=== PATIENT | female | born 1960 | race Caucasian/White ===

== ENCOUNTER 2019-04-25 20:55 | Inpatient (IN) | payer OTHER ==
[~2019-04-25] VITALS: Ht 160 cm; Wt 52.3 kg
[2019-04-25] MEDS ORDERED: ondansetron 4mg rapidly disintigrating tab PO ONE (21:20)
[2019-04-25] MEDS ORDERED: ketorolac tromethamine 15mg/ml inj. IV ONE (21:20)
[2019-04-25] MEDS ORDERED: normal saline 1000ML IV soln IVB ONE ×2 (21:20→22:50)
[2019-04-25 21:48] LABS: BASOPHILS # (AUTO) 0.1 X10'3 (0-0.2); BASOPHILS % (AUTO) 0.3 % (0-1); EOSINOPHILS % (AUTO) 0.1 % (0-6); HEMATOCRIT 33.3 % (35.0-45.0); HEMOGLOBIN 11.2 g/dl (12.0-16.0); LYMPHOCYTES % (AUTO) 4.6 % (21-51); MEAN CORPUSCULAR HEMOGLOBIN 30.8 PG (27.0-31.0); MEAN CORPUSCULAR HGB CONC 33.7 g/dL (33.0-36.5); MEAN CORPUSCULAR VOLUME 91.4 FL (78-98); MONOCYTES # (AUTO) 0.9 X10'3 (0-0.9); MONOCYTES % (AUTO) 4.2 % (2-12); NEUTROPHILS # (AUTO) 18.9 X10'3 (1.8-7.7); NEUTROPHILS % (AUTO) 90.8 % (42-75); PLATELET COUNT 306 X10'3 (140-440); RED BLOOD COUNT 3.65 X10'6 (4.20-5.60); RED CELL DISTRIBUTION WIDTH 12.5 % (11.5-14.5); WHITE BLOOD COUNT 20.8 X10'3 (4.5-11.0)
[2019-04-25 22:03] LABS: ALANINE AMINOTRANSFERASE 13 U/L (12-78); ALBUMIN 3.1 G/DL (3.4-5.0); ALBUMIN/GLOBULIN RATIO 0.8 (1.1-1.5); ALKALINE PHOSPHATASE 113 IU/L (46-116); ANION GAP 9 (8-16); ASPARTATE AMINO TRANSFERASE 11 U/L (10-37); BILIRUBIN,TOTAL 0.7 MG/DL (0.1-1.0); BLOOD UREA NITROGEN 13 MG/DL (7-18); BUN/CREATININE RATIO 11.1 (6.6-38.0); CALCIUM 8.4 MG/DL (8.5-10.1); CHLORIDE 97 MMOL/L (99-107); CREATININE 1.17 MG/DL (0.40-0.90); GLUCOSE 139 MG/DL (70-104); POTASSIUM 3.1 MMOL/L (3.5-5.1); SODIUM 135 MMOL/L (135-145); TOTAL CARBON DIOXIDE 28.7 MMOL/L (24-32); TOTAL PROTEIN 6.9 G/DL (6.4-8.2); eGFR 48 ML/MIN
[2019-04-25] MEDS ORDERED: VENL150C2 PO (22:19)
[2019-04-25] MEDS ORDERED: PANT20TA3 PO (22:19)
[2019-04-25] MEDS ORDERED: DICY10CA88 PO (22:19)
[2019-04-25 22:24] LABS: TOTAL CELLS COUNTED 100
[2019-04-25 22:25] LABS: PLATELET ESTIMATE NORMAL
--- NOTE | 2019-04-25 22:36 | NUR ---
discussed pt's pain with edmd Brennon, new orders for fentanyl received.
[2019-04-25] MEDS ORDERED: fentaNYL/PF 50MCG/1 ML 2ML syringe IV ONE (22:40)
[2019-04-25 23:13] LABS: CLARITY,URINE CLEAR (Clear); COLOR,URINE YELLOW (Yellow); GLUCOSE, URINE NEGATIVE (Neg); KETONES,URINE NEGATIVE (Neg); LEUKOCYTE ESTERASE ,URINE NEGATIVE (Neg); NITRITES, URINE NEGATIVE (Neg); OCCULT BLOOD,URINE NEGATIVE (Neg); PROTEIN,URINE NEGATIVE (Neg); UROBILINOGEN,URINE 0.2 E.U/dL (0.2-1.0)
[2019-04-25 23:15] LABS: UA COLLECTION TYPE CLN CATCH MIDSTREAM
[2019-04-25] MEDS ORDERED: azithromycin/NS 500mg/250ml 250 ML IV ONE (23:15)
[2019-04-25] MEDS ORDERED: cefepime 1GM/NS ADD-VANTAGE 100 ML IV ONE (23:15)
[2019-04-25] MEDS ORDERED: acetaminophen 325mg tablet PO PRN (23:55)
[2019-04-25] MEDS ORDERED: mag hydrox/Alum hydrox/simeth 30ml oral suspension PO PRN (23:55)
[2019-04-25] MEDS ORDERED: magnesium hydroxide 30ml (MOM) UD suspension PO PRN (23:55)
[2019-04-26] MEDS ORDERED: potassium Cl 20 mEq SR tablet PO STA (00:21)
[2019-04-26 01:07] VITALS: BP 81/50
[2019-04-26] MEDS: normal saline 1000ml 1,000 ML IV SCH ×3 (01:13→20:54)
--- NOTE | 2019-04-26 01:38 | NUR ---
Admit to 4023B at 0050 via gurney from ED. Assumed care with verbal report from Byron ED RN. Patient ambulated from the gurney to bed and positioned for comfort with HOB up. Vital signs wnl's but b/p lower than patient's norm. Given call light and instructed to call for help getting to the bathroom the first time so we can evaluate whether she is symptomatic with her b/p or not. Patient stated understanding. Applesauce given as patient stated hasn't had very much to eat the past couple of days. Denies nausea, but headache remains about 8/10. Rc'd orders from Dr. Hylton to resume patient's home meds that were not on her med rec and for robitussin with codeine for cough. Assmt completed and documented.
[2019-04-26] MEDS: guaiFENesin/codeine phos 10ml UD oral syrup PO PRN ×6 (02:26→20:42)
[2019-04-26] MEDS: HYDROcodone/acetaminophen 5mg/325mg tablet PO PRN ×3 (02:26→17:37)
[2019-04-26 05:49] LABS: BASOPHILS # (AUTO) 0.1 X10'3 (0-0.2); BASOPHILS % (AUTO) 0.5 % (0-1); EOSINOPHILS % (AUTO) 0.1 % (0-6); HEMATOCRIT 29.2 % (35.0-45.0); HEMOGLOBIN 9.8 g/dl (12.0-16.0); LYMPHOCYTES # (AUTO) 1.9 X10'3 (1.1-4.8); LYMPHOCYTES % (AUTO) 9.4 % (21-51); MEAN CORPUSCULAR HGB CONC 33.6 g/dL (33.0-36.5); MEAN CORPUSCULAR VOLUME 92.4 FL (78-98); MEAN PLATELET VOLUME 7.3 FL (7.4-10.4); MONOCYTES # (AUTO) 0.8 X10'3 (0-0.9); NEUTROPHILS # (AUTO) 17.5 X10'3 (1.8-7.7); PLATELET COUNT 270 X10'3 (140-440); RED BLOOD COUNT 3.16 X10'6 (4.20-5.60); RED CELL DISTRIBUTION WIDTH 12.6 % (11.5-14.5); WHITE BLOOD COUNT 20.3 X10'3 (4.5-11.0)
[2019-04-26 06:00] VITALS: BP 89/47
[2019-04-26 06:08] LABS: ALANINE AMINOTRANSFERASE 14 U/L (12-78); ALBUMIN 2.5 G/DL (3.4-5.0); ALBUMIN/GLOBULIN RATIO 0.7 (1.1-1.5); ALKALINE PHOSPHATASE 100 IU/L (46-116); ANION GAP 7 (8-16); ASPARTATE AMINO TRANSFERASE 15 U/L (10-37); BILIRUBIN,TOTAL 0.5 MG/DL (0.1-1.0); BLOOD UREA NITROGEN 10 MG/DL (7-18); CALCIUM 7.6 MG/DL (8.5-10.1); CHLORIDE 105 MMOL/L (99-107); CREATININE 0.77 MG/DL (0.40-0.90); GLUCOSE 114 MG/DL (70-104); POTASSIUM 3.7 MMOL/L (3.5-5.1); SODIUM 137 MMOL/L (135-145); TOTAL CARBON DIOXIDE 24.7 MMOL/L (24-32); TOTAL PROTEIN 5.9 G/DL (6.4-8.2); eGFR 77 ML/MIN
--- NOTE | 2019-04-26 06:34 | NUR ---
Problems reprioritized. Patient report given, questions answered & plan of care reviewed with Paige FRANK.
[2019-04-26] MEDS ORDERED: cefepime 2gm inj IV SCH (08:00)
[2019-04-26] MEDS: gabapentin 300mg capsule PO SCH ×3 (08:49→20:43)
[2019-04-26] MEDS: pantoprazole 40mg Tablet.DR PO SCH (08:49)
[2019-04-26] MEDS: baclofen 10mg tablet PO SCH ×3 (08:50→20:43)
[2019-04-26] MEDS: dicyclomine 10 MG capsule PO SCH ×3 (08:50→20:43)
[2019-04-26] MEDS: heparin, porcine 5000 units/ml vial SQ SCH ×2 (08:51→20:44)
[2019-04-26] MEDS: venlafaxine XR 75mg capsule (Q24H) PO SCH (09:01)
[2019-04-26] MEDS: CEFEPIME 2 GM in NS 100ml IV.SOLN 100 ML IV SCH ×2 (09:02→20:42)
[2019-04-26] MEDS: azithromycin 250mg tablet PO SCH (09:02)
[2019-04-26 10:00] VITALS: BP 93/55
[2019-04-26] MEDS: guaiFENesin ER 600mg tablet PO SCH ×2 (12:10→20:43)
[2019-04-26 18:00] VITALS: BP 103/50
--- NOTE | 2019-04-26 19:35 | NUR ---
REPORT REC'D FROM ZAC HERNANDEZ.
[2019-04-26] MEDS: lactobacillus rhamnosus 10,000 MMU CELLS/CAPSULE PO SCH (20:43)
[2019-04-26 22:00] VITALS: BP 110/59
[2019-04-27] MEDS: HYDROcodone/acetaminophen 5mg/325mg tablet PO PRN ×2 (01:57→18:22)
[2019-04-27] MEDS: guaiFENesin/codeine phos 10ml UD oral syrup PO PRN ×5 (01:57→22:50)
[2019-04-27 05:34] VITALS: BP 107/55
--- NOTE | 2019-04-27 06:10 | NUR ---
REPORT GIVEN TO ZAC HERNANDEZ.
[2019-04-27 06:17] LABS: BASOPHILS # (AUTO) 0.1 X10'3 (0-0.2); BASOPHILS % (AUTO) 0.4 % (0-1); EOSINOPHILS # (AUTO) 0.1 X10'3 (0-0.9); EOSINOPHILS % (AUTO) 0.7 % (0-6); HEMOGLOBIN 9.9 g/dl (12.0-16.0); LYMPHOCYTES # (AUTO) 1.7 X10'3 (1.1-4.8); LYMPHOCYTES % (AUTO) 9.7 % (21-51); MEAN CORPUSCULAR HEMOGLOBIN 30.8 PG (27.0-31.0); MEAN CORPUSCULAR VOLUME 93.1 FL (78-98); MEAN PLATELET VOLUME 7.1 FL (7.4-10.4); MONOCYTES # (AUTO) 0.8 X10'3 (0-0.9); MONOCYTES % (AUTO) 4.3 % (2-12); NEUTROPHILS # (AUTO) 15.2 X10'3 (1.8-7.7); NEUTROPHILS % (AUTO) 84.9 % (42-75); PLATELET COUNT 271 X10'3 (140-440); RED BLOOD COUNT 3.22 X10'6 (4.20-5.60); RED CELL DISTRIBUTION WIDTH 12.8 % (11.5-14.5); WHITE BLOOD COUNT 17.9 X10'3 (4.5-11.0)
[2019-04-27 07:05] LABS: ALANINE AMINOTRANSFERASE 16 U/L (12-78); ALBUMIN 2.5 G/DL (3.4-5.0); ALBUMIN/GLOBULIN RATIO 0.6 (1.1-1.5); ALKALINE PHOSPHATASE 111 IU/L (46-116); ANION GAP 8 (8-16); ASPARTATE AMINO TRANSFERASE 19 U/L (10-37); BILIRUBIN,TOTAL 0.3 MG/DL (0.1-1.0); BLOOD UREA NITROGEN 6 MG/DL (7-18); BUN/CREATININE RATIO 8.8 (6.6-38.0); CHLORIDE 107 MMOL/L (99-107); CREATININE 0.68 MG/DL (0.40-0.90); GLUCOSE 105 MG/DL (70-104); POTASSIUM 3.4 MMOL/L (3.5-5.1); SODIUM 138 MMOL/L (135-145); TOTAL CARBON DIOXIDE 23.2 MMOL/L (24-32); TOTAL PROTEIN 6.4 G/DL (6.4-8.2); eGFR 89 ML/MIN
[2019-04-27 07:26] LABS: PLATELET ESTIMATE NORMAL; TOTAL CELLS COUNTED 100
[2019-04-27] MEDS: pantoprazole 40mg Tablet.DR PO SCH (08:14)
[2019-04-27] MEDS: azithromycin 250mg tablet PO SCH (08:15)
[2019-04-27] MEDS: guaiFENesin ER 600mg tablet PO SCH ×2 (08:15→20:25)
[2019-04-27] MEDS: venlafaxine XR 75mg capsule (Q24H) PO SCH (08:16)
[2019-04-27] MEDS ORDERED: traMADol 50MG tablet PO PRN (08:25)
[2019-04-27] MEDS: lactobacillus rhamnosus 10,000 MMU CELLS/CAPSULE PO SCH ×2 (08:30→20:25)
[2019-04-27] MEDS: gabapentin 300mg capsule PO SCH ×3 (08:30→20:25)
[2019-04-27] MEDS: baclofen 10mg tablet PO SCH ×3 (08:30→20:26)
[2019-04-27] MEDS: dicyclomine 10 MG capsule PO SCH ×3 (08:30→20:25)
[2019-04-27] MEDS: heparin, porcine 5000 units/ml vial SQ SCH ×2 (08:30→20:26)
[2019-04-27] MEDS: normal saline 1000ml 1,000 ML IV SCH ×2 (08:32→19:41)
[2019-04-27] MEDS: CEFEPIME 2 GM in NS 100ml IV.SOLN 100 ML IV SCH ×2 (08:32→20:27)
[2019-04-27] MEDS ORDERED: HYDR2TAB28 PO (08:57)
[2019-04-27 10:50] VITALS: BP 141/70
--- NOTE | 2019-04-27 14:43 | NUR ---
Initial: Pt admit w/ sepsis, PNA, and KATHY secondary to sepsis per MD note. PO 50-75% avg regular diet meeting needs given current wt; also still significant coughing per note. LBM 04/26. Will continue to monitor. Rec: 1. continue regular diet 2. monitor for ONS needs 3. wt per rx Addendum: 04/27/19 at [address] Amended: Links added.
[2019-04-27 18:00] VITALS: BP 113/65
[2019-04-27 22:00] VITALS: BP 136/75
[2019-04-28] MEDS: guaiFENesin/codeine phos 10ml UD oral syrup PO PRN ×3 (01:30→20:19)
[2019-04-28] MEDS: normal saline 1000ml 1,000 ML IV SCH ×3 (01:54→20:06)
[2019-04-28] MEDS: ondansetron/PF 4mg/2ml inj IV PRN ×3 (04:55→23:34)
[2019-04-28] MEDS: HYDROcodone/acetaminophen 5mg/325mg tablet PO PRN ×3 (04:56→22:49)
[2019-04-28 06:00] VITALS: BP 139/75
[2019-04-28 06:18] LABS: BASOPHILS # (AUTO) 0.1 X10'3 (0-0.2); BASOPHILS % (AUTO) 0.5 % (0-1); EOSINOPHILS # (AUTO) 0.3 X10'3 (0-0.9); EOSINOPHILS % (AUTO) 2.3 % (0-6); HEMATOCRIT 27.1 % (35.0-45.0); HEMOGLOBIN 9.2 g/dl (12.0-16.0); LYMPHOCYTES # (AUTO) 1.1 X10'3 (1.1-4.8); LYMPHOCYTES % (AUTO) 10.1 % (21-51); MEAN CORPUSCULAR HEMOGLOBIN 31.4 PG (27.0-31.0); MEAN CORPUSCULAR HGB CONC 33.8 g/dL (33.0-36.5); MEAN CORPUSCULAR VOLUME 92.8 FL (78-98); MEAN PLATELET VOLUME 7.2 FL (7.4-10.4); MONOCYTES # (AUTO) 0.6 X10'3 (0-0.9); MONOCYTES % (AUTO) 5.1 % (2-12); NEUTROPHILS # (AUTO) 9.2 X10'3 (1.8-7.7); PLATELET COUNT 270 X10'3 (140-440); RED BLOOD COUNT 2.92 X10'6 (4.20-5.60); RED CELL DISTRIBUTION WIDTH 12.3 % (11.5-14.5); WHITE BLOOD COUNT 11.3 X10'3 (4.5-11.0)
--- NOTE | 2019-04-28 06:31 | NUR ---
REPORT GIVEN TO ZAC MARROQUIN.
[2019-04-28 06:43] LABS: ALANINE AMINOTRANSFERASE 11 U/L (12-78); ALBUMIN 2.2 G/DL (3.4-5.0); ALBUMIN/GLOBULIN RATIO 0.6 (1.1-1.5); ALKALINE PHOSPHATASE 106 IU/L (46-116); ANION GAP 9 (8-16); ASPARTATE AMINO TRANSFERASE 16 U/L (10-37); BILIRUBIN,TOTAL 0.2 MG/DL (0.1-1.0); BLOOD UREA NITROGEN 3 MG/DL (7-18); BUN/CREATININE RATIO 6.3 (6.6-38.0); CHLORIDE 105 MMOL/L (99-107); CREATININE 0.48 MG/DL (0.40-0.90); GLUCOSE 99 MG/DL (70-104); SODIUM 140 MMOL/L (135-145); TOTAL CARBON DIOXIDE 26.2 MMOL/L (24-32); TOTAL PROTEIN 6.1 G/DL (6.4-8.2); eGFR > 90 ML/MIN
[2019-04-28 06:45] LABS: POTASSIUM 3.4 MMOL/L (3.5-5.1)
[2019-04-28] MEDS: dicyclomine 10 MG capsule PO SCH ×3 (08:09→20:20)
[2019-04-28] MEDS: lactobacillus rhamnosus 10,000 MMU CELLS/CAPSULE PO SCH ×2 (08:09→20:08)
[2019-04-28] MEDS: venlafaxine XR 75mg capsule (Q24H) PO SCH (08:10)
[2019-04-28] MEDS: baclofen 10mg tablet PO SCH ×3 (08:11→20:20)
[2019-04-28] MEDS: guaiFENesin ER 600mg tablet PO SCH ×2 (08:12→20:08)
[2019-04-28] MEDS: gabapentin 300mg capsule PO SCH ×3 (08:13→20:20)
[2019-04-28] MEDS: azithromycin 250mg tablet PO SCH (08:13)
[2019-04-28] MEDS: pantoprazole 40mg Tablet.DR PO SCH (08:13)
[2019-04-28] MEDS: heparin, porcine 5000 units/ml vial SQ SCH ×2 (08:15→20:09)
[2019-04-28] MEDS: CEFEPIME 2 GM in NS 100ml IV.SOLN 100 ML IV SCH ×2 (08:18→20:10)
[2019-04-28 10:00] VITALS: BP 95/58
--- NOTE | 2019-04-28 11:38 | NUR ---
Student documentation: I have reviewed all interventions, assessments performed and documented by Isac KIRBY [facility]. Student Medication Administration: For this medication-pass time frame, all medication were reviewed, dispensed, administered and documented per hospital policy by Isac Deng [facility].
[2019-04-28 18:00] VITALS: BP 129/72
--- NOTE | 2019-04-28 18:40 | NUR ---
Problems reprioritized. Patient report given, questions answered & plan of care reviewed with marianela RN.
[2019-04-28 22:00] VITALS: BP 126/73
[2019-04-29] MEDS: guaiFENesin/codeine phos 10ml UD oral syrup PO PRN ×4 (05:01→22:52)
[2019-04-29] MEDS: normal saline 1000ml 1,000 ML IV SCH (05:52)
[2019-04-29 06:10] VITALS: BP 130/70
[2019-04-29 06:52] LABS: BASOPHILS % (AUTO) 0.5 % (0-1); EOSINOPHILS # (AUTO) 0.2 X10'3 (0-0.9); EOSINOPHILS % (AUTO) 2.6 % (0-6); HEMATOCRIT 28.9 % (35.0-45.0); HEMOGLOBIN 9.7 g/dl (12.0-16.0); LYMPHOCYTES # (AUTO) 1.1 X10'3 (1.1-4.8); LYMPHOCYTES % (AUTO) 14.1 % (21-51); MEAN CORPUSCULAR HGB CONC 33.6 g/dL (33.0-36.5); MEAN CORPUSCULAR VOLUME 92.3 FL (78-98); MEAN PLATELET VOLUME 7.5 FL (7.4-10.4); MONOCYTES # (AUTO) 0.5 X10'3 (0-0.9); MONOCYTES % (AUTO) 6.8 % (2-12); NEUTROPHILS # (AUTO) 5.8 X10'3 (1.8-7.7); PLATELET COUNT 348 X10'3 (140-440); RED BLOOD COUNT 3.13 X10'6 (4.20-5.60); RED CELL DISTRIBUTION WIDTH 12.3 % (11.5-14.5); WHITE BLOOD COUNT 7.6 X10'3 (4.5-11.0)
--- NOTE | 2019-04-29 06:58 | NUR ---
Patient in room ORTHO 4023. I have received report from Wendy RN and had the opportunity to ask questions and assume patient care.
[2019-04-29 07:05] LABS: ALANINE AMINOTRANSFERASE 8 U/L (12-78); ALBUMIN 2.2 G/DL (3.4-5.0); ALBUMIN/GLOBULIN RATIO 0.6 (1.1-1.5); ALKALINE PHOSPHATASE 104 IU/L (46-116); ANION GAP 8 (8-16); ASPARTATE AMINO TRANSFERASE 13 U/L (10-37); BILIRUBIN,TOTAL 0.2 MG/DL (0.1-1.0); BLOOD UREA NITROGEN 2 MG/DL (7-18); BUN/CREATININE RATIO 3.8 (6.6-38.0); CHLORIDE 107 MMOL/L (99-107); CREATININE 0.52 MG/DL (0.40-0.90); GLUCOSE 100 MG/DL (70-104); POTASSIUM 3.1 MMOL/L (3.5-5.1); SODIUM 142 MMOL/L (135-145); TOTAL CARBON DIOXIDE 27.4 MMOL/L (24-32); eGFR > 90 ML/MIN
[2019-04-29] MEDS: HYDROcodone/acetaminophen 5mg/325mg tablet PO PRN (07:35)
[2019-04-29] MEDS: CEFEPIME 2 GM in NS 100ml IV.SOLN 100 ML IV SCH ×2 (08:03→20:25)
[2019-04-29] MEDS: gabapentin 300mg capsule PO SCH ×3 (08:03→20:31)
[2019-04-29] MEDS: pantoprazole 40mg Tablet.DR PO SCH (08:03)
[2019-04-29] MEDS: dicyclomine 10 MG capsule PO SCH ×3 (08:03→20:30)
[2019-04-29] MEDS: guaiFENesin ER 600mg tablet PO SCH ×2 (08:04→20:30)
[2019-04-29] MEDS: azithromycin 250mg tablet PO SCH (08:04)
[2019-04-29] MEDS: lactobacillus rhamnosus 10,000 MMU CELLS/CAPSULE PO SCH ×2 (08:04→20:30)
[2019-04-29] MEDS: baclofen 10mg tablet PO SCH ×3 (08:04→20:31)
[2019-04-29] MEDS: venlafaxine XR 75mg capsule (Q24H) PO SCH (08:05)
[2019-04-29] MEDS: heparin, porcine 5000 units/ml vial SQ SCH ×2 (08:06→20:26)
[2019-04-29] MEDS ORDERED: potassium Cl 20 mEq SR tablet PO PRN (08:55)
[2019-04-29] MEDS ORDERED: potassium CL 10mEq/100ml bag 100 ML IV PRN (08:55)
[2019-04-29] MEDS: potassium Cl 20 mEq SR tablet PO PRN ×3 (09:18→22:52)
[2019-04-29 10:00] VITALS: BP 132/77
[2019-04-29] MEDS ORDERED: AZI25OT PO (10:50)
[2019-04-29] MEDS ORDERED: CEFD300C3 PO (10:50)
--- NOTE | 2019-04-29 11:09 | NUR ---
Dr. Orantes wanted me to see if patient was ready for dc because labs are better, so I checked on patient removed 02 and saw her sats were low 80's even 70's when she stood up. The highest on room air occasionally was 90 but kept dipping to 80's checked on 2 different pulse ox's. I called Obie Orantes, told her she will put her on solumedrol, a dose of lasix, and chest x-ray.
[2019-04-29] MEDS ORDERED: furosemide 20 MG/2 ML vial IV ONE ×2 (11:10→18:20)
[2019-04-29] MEDS ORDERED: methylPREDNISolone sod succ 125mg/2ml vial IV ONE (11:10)
--- NOTE | 2019-04-29 11:59 | NUR ---
Student documentation: I have reviewed all interventions, assessments performed and documented by Bradford Mcmahon. Student Medication Administration: For this medication-pass time frame, all medication were reviewed, dispensed, administered and documented per hospital policy by Bradford Mcmahon.
--- NOTE | 2019-04-29 12:01 | NUR ---
gave report to Camryn FRANK
--- NOTE | 2019-04-29 15:26 | NUR ---
PAGER ID: [phone] MESSAGE: Patient in [id number] chest x-ray states it looked worse since the 1st. Family wants to know what it says. Camryn [id number] ortho. I'll tell them we started the steroids ect.
--- NOTE | 2019-04-29 17:05 | NUR ---
I paged Dr. Orantes to see if she wants nebulizer treatments ordered for patient. waiting for call back
[2019-04-29] MEDS ORDERED: ipratropium/albuterol 3ml nebule NEB PRN (17:15)
--- NOTE | 2019-04-29 18:35 | NUR ---
Problems reprioritized. Patient report given, questions answered & plan of care reviewed with Arleth FRANK.
--- NOTE | 2019-04-29 18:40 | NUR ---
Patient in room ORTHO 4023. I have received report from LUCILA FRANK and had the opportunity to ask questions and assume patient care.
[2019-04-29 19:00] VITALS: BP 128/64
[2019-04-29 23:00] VITALS: BP 132/84
[2019-04-30] VITALS (10 sets, daily range): BP systolic 115–175; BP diastolic 58–88
[2019-04-30 06:08] LABS: BASOPHILS % (AUTO) 0.3 % (0-1); EOSINOPHILS % (AUTO) 0.2 % (0-6); HEMOGLOBIN 9.9 g/dl (12.0-16.0); LYMPHOCYTES # (AUTO) 1.6 X10'3 (1.1-4.8); LYMPHOCYTES % (AUTO) 15.7 % (21-51); MEAN CORPUSCULAR HEMOGLOBIN 31.1 PG (27.0-31.0); MEAN CORPUSCULAR VOLUME 91.6 FL (78-98); MEAN PLATELET VOLUME 7.2 FL (7.4-10.4); MONOCYTES # (AUTO) 0.8 X10'3 (0-0.9); MONOCYTES % (AUTO) 8.3 % (2-12); NEUTROPHILS # (AUTO) 7.5 X10'3 (1.8-7.7); NEUTROPHILS % (AUTO) 75.5 % (42-75); PLATELET COUNT 394 X10'3 (140-440); RED BLOOD COUNT 3.17 X10'6 (4.20-5.60); RED CELL DISTRIBUTION WIDTH 12.6 % (11.5-14.5)
--- NOTE | 2019-04-30 06:16 | NUR ---
Problems reprioritized. Patient report given, questions answered & plan of care reviewed with LUCILA FRANK.
--- NOTE | 2019-04-30 06:23 | NUR ---
Patient in room ORTHO 4023. I have received report from Arleth FRANK and had the opportunity to ask questions and assume patient care.
[2019-04-30 06:36] LABS: ALANINE AMINOTRANSFERASE 10 U/L (12-78); ALBUMIN 2.4 G/DL (3.4-5.0); ALBUMIN/GLOBULIN RATIO 0.6 (1.1-1.5); ALKALINE PHOSPHATASE 108 IU/L (46-116); ANION GAP 6 (8-16); ASPARTATE AMINO TRANSFERASE 18 U/L (10-37); BILIRUBIN,TOTAL 0.1 MG/DL (0.1-1.0); BLOOD UREA NITROGEN 6 MG/DL (7-18); BUN/CREATININE RATIO 11.1 (6.6-38.0); CALCIUM 8.4 MG/DL (8.5-10.1); CHLORIDE 105 MMOL/L (99-107); CREATININE 0.54 MG/DL (0.40-0.90); GLUCOSE 105 MG/DL (70-104); POTASSIUM 3.4 MMOL/L (3.5-5.1); SODIUM 143 MMOL/L (135-145); TOTAL CARBON DIOXIDE 31.6 MMOL/L (24-32); TOTAL PROTEIN 6.3 G/DL (6.4-8.2); eGFR > 90 ML/MIN
[2019-04-30] MEDS: azithromycin 250mg tablet PO SCH (07:15)
[2019-04-30] MEDS: dicyclomine 10 MG capsule PO SCH ×3 (07:15→20:14)
[2019-04-30] MEDS: lactobacillus rhamnosus 10,000 MMU CELLS/CAPSULE PO SCH ×2 (07:18→20:14)
[2019-04-30] MEDS: venlafaxine XR 75mg capsule (Q24H) PO SCH (07:18)
[2019-04-30] MEDS: baclofen 10mg tablet PO SCH ×3 (07:18→20:14)
[2019-04-30] MEDS: gabapentin 300mg capsule PO SCH ×3 (07:18→20:14)
[2019-04-30] MEDS: guaiFENesin ER 600mg tablet PO SCH ×2 (07:18→20:14)
[2019-04-30] MEDS: pantoprazole 40mg Tablet.DR PO SCH (07:18)
[2019-04-30] MEDS: heparin, porcine 5000 units/ml vial SQ SCH ×2 (07:19→20:15)
[2019-04-30] MEDS: potassium Cl 20 mEq SR tablet PO PRN ×3 (07:23→20:14)
[2019-04-30] MEDS: CEFEPIME 2 GM in NS 100ml IV.SOLN 100 ML IV SCH (07:24)
[2019-04-30] MEDS: ipratropium/albuterol 3ml nebule NEB SCH ×3 (07:41→20:17)
[2019-04-30] MEDS ORDERED: furosemide 40mg/4ml inj IV ONE (09:35)
[2019-04-30] MEDS ORDERED: vancomycin inj. 750 MG in normal saline 250ml IV soln 250 ML IV SCH (10:00)
--- NOTE | 2019-04-30 15:18 | NUR ---
Spoke to Angio perosnal they said 575ml fluid removed from each lung
[2019-04-30] MEDS: cefepime 2g/NS 100ml ADVANTAGE 100 ML IV SCH ×2 (15:56→23:45)
[2019-04-30] MEDS: HYDROcodone/acetaminophen 5mg/325mg tablet PO PRN (17:24)
--- NOTE | 2019-04-30 18:00 | NUR ---
Patient in room ORTHO 4023. I have received report from ZAC Cowan and had the opportunity to ask questions and assume patient care.
--- NOTE | 2019-04-30 18:30 | NUR ---
Problems reprioritized. Patient report given, questions answered & plan of care reviewed with Kathy FRANK.
[2019-05-01] MEDS: ipratropium/albuterol 3ml nebule NEB SCH ×2 (02:41→08:00)
[2019-05-01 06:10] VITALS: BP 141/62
--- NOTE | 2019-05-01 06:11 | NUR ---
Problems reprioritized. Patient report given, questions answered & plan of care reviewed with ZAC Cowan.
--- NOTE | 2019-05-01 06:30 | NUR ---
Patient in room ORTHO 4023. I have received report from Kathy FRANK and had the opportunity to ask questions and assume patient care.
[2019-05-01] MEDS: cefepime 2g/NS 100ml ADVANTAGE 100 ML IV SCH (09:12)
[2019-05-01] MEDS: baclofen 10mg tablet PO SCH ×2 (09:13→13:54)
[2019-05-01] MEDS: lactobacillus rhamnosus 10,000 MMU CELLS/CAPSULE PO SCH (09:13)
[2019-05-01] MEDS: guaiFENesin ER 600mg tablet PO SCH (09:13)
[2019-05-01] MEDS: dicyclomine 10 MG capsule PO SCH ×2 (09:13→13:54)
[2019-05-01] MEDS: gabapentin 300mg capsule PO SCH ×2 (09:13→13:54)
[2019-05-01] MEDS: pantoprazole 40mg Tablet.DR PO SCH (09:13)
[2019-05-01] MEDS: venlafaxine XR 75mg capsule (Q24H) PO SCH (09:13)
[2019-05-01] MEDS: heparin, porcine 5000 units/ml vial SQ SCH (09:14)
[2019-05-01 10:00] VITALS: BP 147/75
[2019-05-01] MEDS ORDERED: AMOX-419 PO (12:52)
[2019-05-01 13:49] LABS: BASOPHILS % (AUTO) 0.4 % (0-1); EOSINOPHILS # (AUTO) 0.2 X10'3 (0-0.9); EOSINOPHILS % (AUTO) 1.5 % (0-6); HEMATOCRIT 32.8 % (35.0-45.0); HEMOGLOBIN 10.9 g/dl (12.0-16.0); LYMPHOCYTES # (AUTO) 2.2 X10'3 (1.1-4.8); LYMPHOCYTES % (AUTO) 19.4 % (21-51); MEAN CORPUSCULAR HEMOGLOBIN 30.5 PG (27.0-31.0); MEAN CORPUSCULAR HGB CONC 33.1 g/dL (33.0-36.5); MEAN PLATELET VOLUME 6.8 FL (7.4-10.4); MONOCYTES # (AUTO) 0.6 X10'3 (0-0.9); MONOCYTES % (AUTO) 5.2 % (2-12); NEUTROPHILS # (AUTO) 8.3 X10'3 (1.8-7.7); NEUTROPHILS % (AUTO) 73.5 % (42-75); PLATELET COUNT 450 X10'3 (140-440); RED BLOOD COUNT 3.57 X10'6 (4.20-5.60); RED CELL DISTRIBUTION WIDTH 12.6 % (11.5-14.5); WHITE BLOOD COUNT 11.3 X10'3 (4.5-11.0)
[2019-05-01 13:52] LABS: ALBUMIN 2.9 G/DL (3.4-5.0); ANION GAP 4 (8-16); BLOOD UREA NITROGEN 7 MG/DL (7-18); BUN/CREATININE RATIO 12.1 (6.6-38.0); CHLORIDE 101 MMOL/L (99-107); CREATININE 0.58 MG/DL (0.40-0.90); GLUCOSE 165 MG/DL (70-104); POTASSIUM 3.6 MMOL/L (3.5-5.1); SODIUM 138 MMOL/L (135-145); eGFR > 90 ML/MIN
--- NOTE | 2019-05-01 14:30 | NUR ---
Patient stable and discharged with family at this time. Patient aware to folow up with pcp next week and antibiotics e-scripted to aneesh sal
[2019-05-01] MEDS ORDERED: VANCOMYCIN LEVEL IV ONE (21:30)
== END 2019-05-01 14:30 | disposition home or self-care (01) | DRG 871 ==
LOC: ER 20:56 → ED HOLD 23:56 → ORTHO 4S 04-26 00:50
PROVIDERS: ADMIT Internal Medicine; ATTEND Internal Medicine
PROC: 0W9B3ZZ Drainage of Left Pleural Cavity, Percutaneous Approach (ICD-10-PCS; principal; 2019-04-30)
PROC: 0W993ZZ Drainage of Right Pleural Cavity, Percutaneous Approach (ICD-10-PCS; 2019-04-30)
DX: A41.9 Sepsis, unspecified organism (principal); J18.9 Pneumonia, unspecified organism; N17.9 Acute kidney failure, unspecified; J91.8 Pleural effusion in other conditions classified elsewhere; D64.9 Anemia, unspecified; R09.02 Hypoxemia; F32.9 Major depressive disorder, single episode, unspecified; E87.6 Hypokalemia; G89.29 Other chronic pain; K21.9 Gastro-esophageal reflux disease without esophagitis; M54.2 Cervicalgia; Y95 Nosocomial condition; I95.9 Hypotension, unspecified; Z88.5 Allergy status to narcotic agent; Z98.1 Arthrodesis status; Z79.899 Other long term (current) drug therapy
CPT/HCPCS: 32555; 36415; 71045; 80048; 80053; 81003; 83605; 84145; 84484; 85025; 87040; 87070; 87081; 87502; 87503; 93306; 94640; 94760; 96361; 96365; 96368; 96375; 99285; G0378; J0456; J0692; J1644; J1885; J1940; J2405; J2930; J3010; J3370; J7030; J7050